=== PATIENT | male | born 1965 | race Caucasian/White ===

== ENCOUNTER 2025-08-20 13:56 | Outpatient (AMB) | payer OTHER, SELFPAY ==
--- NOTE | 2025-08-20 14:31 | MHC.PC.OV ---
Vital Signs 08/20/25 14:34 Height 5 ft 9.88 in Weight 250 lb BMI 36.0 BP 158/90 H Respiration 16 Pulse 100 Pulse Source Pulse Oximeter Temp 98.6 F Temp Source Temporal Artery Scan Pulse Oximetry (%) 97 Oxygen Delivery Method Room Air Intake Visit Reasons: Establish Care - see comments Hiv/Aids Care Nurse Required: No Accompanied by: Self / Same As Patient Allergies clindamycin Allergy (Mild, Verified 08/20/25 14:40) Diarrhea Tobacco use date assessed: 08/20/25 Dental Screening Dental Screen Date: 08/20/25 Did you have a dental visit in the last 12 months?: Yes Did you have a dental problem in the last 6 months where you did not have access to dental care?: No Was dental information given to patient?: Patient has dentist [facility] Medical History (Updated 08/20/25 @ 15:07 by Pablo Wooten MD) Hypopituitarism Obstructive sleep apnea Diabetes mellitus Family History (Updated 08/20/25 @ 14:46 by DIEGO Ramos) Father Prostate cancer Alcohol abuse Mother Breast cancer Alcohol abuse Social History (Updated 08/20/25 @ 14:32 by DIEGO Ramos) Housing: House Alcohol intake: current Alcohol intake frequency: does not drink Patient Tobacco Use Status: Never used Tobacco service: No Current occupational status: unemployed Cognitive needs: No Hearing needs: No Vision needs: Yes (rx glasses) Questionnaire PHQ-9 Over the last 2 weeks, how often have you been bothered by any of the following problems? 1. Little interest or pleasure in doing things: not at all 2. Feeling down, depressed, or hopeless: not at all 3. Trouble falling or staying asleep, or sleeping too much: not at all 4. Feeling tired or having little energy: not at all 5. Poor appetite or overeating: not at all 6. Feeling bad about yourself - or that you are a failure or have let yourself or your family down: not at all 7. Trouble concentrating on things, such as reading the newspaper or watching television: not at all 8. Moving or speaking so slowly that other people could have noticed. Or the opposite - being so fidgety or restless that you have been moving around a lot more than usual: not at all 9. Thoughts that you would be better off or of hurting yourself in some way: not at all Total score: 0 Source: Developed by Drs. Marcus Cotter, Bry Roberson and colleagues, with an educational danny from [employer] Thrive Questionnaire Date Thrive assessed: 08/20/25 I am a: Patient What is your living situation today?: I have a steady place to live Within the past 12 months, did the food you bought not last and you didn't have the money to get more?: Never true Within the past 12 months, did you worry whether your food would run out before you got money to buy more?: Never true Do you have trouble paying for medicines?: No Do you have trouble getting transportation to medical appointments?: No Do you have trouble paying your heating and electricity bill?: No Do you have trouble taking care of your child, family member or friend?: No Do you have trouble with day-to-day activities such as bathing, preparing meals, shopping, managing finances, etc.?: No Are you currently unemployed and looking for a job?: No Are you interested in more education?: No Please select the resources that you would like help with: None THRIVE Score: 0 AUDIT C Alcohol Use Questionnaire (AUDIT-C) 1. How often do you have a drink containing alcohol?: Never 3. How often do you have six or more drinks on one occasion?: Never Total Score: 0 AICHA-7 AMB Questionnaire AICHA-7 Date AICHA - 7 assessed: 08/20/25 Feeling nervous, anxious, or on edge: 0 = Not at all Not being able to stop or control worryin = Not at all Worrying too much about different things: 0 = Not at all Trouble relaxin = Not at all Being so restless that it is hard to sit still: 0 = Not at all Becoming easily annoyed or irritable: 0 = Not at all Feeling afraid as if something awful might happen: 0 = Not at all Total AICHA-7 score (0-4 normal; 5-9 mild; 10-14 moderate; 15-21 severe): 0 Source: Developed by Drs. Marcus Cotter, Bry Roberson and colleagues, with an educational danny from [employer]. Physical exam (Primary Care) Vital Signs: Last Vital Signs Temp 98.6 F 08/20/25 14:34 Pulse 100 08/20/25 14:34 Resp 16 08/20/25 14:34 BP 158/90 H 08/20/25 14:34 Pulse Ox 97 08/20/25 14:34 Oxygen Delivery Method Room Air 08/20/25 14:34 BMI result Body Mass Index 36.0 Tobacco/Smoking Status: Tobacco use Status Tobacco use date assessed 08/20/25 08/20/25 14:47 Patient Tobacco Use Status Never used Tobacco 08/20/25 14:47 PHQ-9: PHQ-9 Score PHQ-9: Total score 0 08/20/25 14:47 Thrive Assessment: Date of Thrive Assessment Date Thrive assessed 08/20/25 08/20/25 14:47 Office Procedures Flu Questionnaire Does the patient have a severe egg allergy?: No Does the patient have severe life threatening allergies?: No Does the patient have a fever or illness today?: No Has the patient ever had Guillain-Garvin Syndrome?: No Has the patient ever had any past reaction to a flu shot?: No Immunizations Fluarix [id number] (PF) 45 mcg (15 mcg x 3)/0.5 mL IM syringe Performing Provider: Pablo Wooten MD [facility] [place] [facility] Administered by: DIEGO Ramos on 08/20/25 14:48 Dose Route Admin Location Dispensed Lot Number Expiration Date [facility] [employer] Season[employer] 0.5 mL IM Left Deltoid 0.5 mL [id number] 05/21/26 11840-361-41 [employer] VIS Given Date VIS Provided VIS Publication Date 08/20/25 Single Vaccine 24 Eligibility Eligibility Date Funding Source Not [facility] Eligible 08/20/25 Private Coding Level of Care Code New Pt Level 4 (27466) Complex EM visit Add On G2211 Diagnoses Diabetes mellitus E11.9 Obstructive sleep apnea G47.33 Hypopituitarism E23.0 Assessment & Plan Assessment & Plan (1) Diabetes mellitus: Code(s): E11.9 - Type 2 diabetes mellitus without complications Category: Medical Plan: History of Present Illness - The patient is a 59-year-old male presenting with chronic pain and sleep apnea. - Chronic pain: The patient has been managing chronic pain with oxycodone for several years, having tried other treatments without success. - Sleep apnea: Despite multiple interventions, including surgeries, the patient continues to experience severe sleep apnea due to anatomical factors. - Chronic pituitary insufficiency: The patient requires testosterone supplementation due to low hormone levels. - Cyclic edema: The patient has experienced recurrent swelling in the lower extremities, with no clear etiology identified despite extensive evaluation. - Umbilical hernia: The patient has an enlarging umbilical hernia, currently asymptomatic. - Knee pain: The patient reports knee pain following a fall, affecting mobility. - Preventative care: The patient has received a flu vaccination. 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 - Substance use: The patient denies smoking and alcohol use but reports consuming cannabis. Review of Systems - General: Reports chronic pain, denies recent weight loss or fever. - Respiratory: Reports severe sleep apnea, denies cough or wheezing. - Endocrine: Reports chronic pituitary insufficiency, denies diabetes. - Musculoskeletal: Reports knee pain, denies joint swelling. - Cardiovascular: Reports cyclic edema, denies chest pain or palpitations. Physical Exam General: Cooperative and healthy appearing Nutritional Appearance: Well nourished Orientation/consciousness: Patient oriented x3 Limitations: No limitations Head: Normal to inspection General: Appearance normal, both eyes and all related structures Neck: Normal visual inspection Chest: Normal palpation of entire chest wall Respiratory: Normal respiratory effort Neurology: Patient oriented x3 Results - Labs: Elevated cortisol levels noted during emergency room visit. - Tests: Multiple sleep studies confirming severe sleep apnea with an apnea-hypopnea index of 69. - Imaging: Vascular ultrasound and echocardiogram performed, no definitive cause for edema identified. Plan - Chronic pain management: Oxycodone will not be prescribed; alternative strategies to be explored. - Sleep apnea: Referral to a sleep specialist for further evaluation due to CPAP intolerance and previous surgeries. - Endocrinology referral: Referral for chronic pituitary insufficiency and elevated cortisol levels management. - Cyclic edema: Continue diuretic therapy and monitor symptoms. - Umbilical hernia: No immediate intervention required as it is asymptomatic. - Knee pain: Conservative management advised, expected to improve naturally. - Preventative care: Blood work ordered, including repeat A1c, and flu vaccination administered. Discussion Notes I discussed with the patient the management of his chronic pain, explaining that oxycodone would not be prescribed and alternative pain management strategies should be considered. We also talked about his severe sleep apnea and the need for a referral to a sleep specialist due to his difficulty with CPAP use and previous surgical interventions. I recommended a referral to an mounted police officer for his chronic pituitary insufficiency and elevated cortisol levels. We reviewed his cyclic edema and decided to continue with his current diuretic therapy. The umbilical hernia was noted to be asymptomatic, and no immediate intervention was required. For his knee pain, conservative management was advised, and it is expected to improve without intervention. Preventative care measures, including blood work and a flu vaccination, were also discussed. Patient Instructions - Follow up with a sleep specialist for further evaluation of sleep apnea. - Schedule an appointment with an mounted police officer for hormone management. - Continue taking prescribed diuretics and monitor for any changes in swelling. - Monitor knee pain and avoid activities that exacerbate discomfort. - Complete blood work as ordered, including a repeat A1c test. - Return for follow-up in three months or sooner if symptoms worsen. (2) Obstructive sleep apnea: Code(s): G47.33 - Obstructive sleep apnea (adult) (pediatric) Category: Medical Plan: As above (3) Hypopituitarism: Code(s): E23.0 - Hypopituitarism Category: Medical Plan: As above Orders: Orders Influenza [id number] Immunization Today Z23 - Encounter for immunization Complete Blood Count no Diff Today E11.9 - Type 2 diabetes mellitus without complications Basic Metabolic Panel Today E11.9 - Type 2 diabetes mellitus without complications Lipid Panel Today E11.9 - Type 2 diabetes mellitus without complications UA and rflx microscopic Today E11.9 - Type 2 diabetes mellitus without complications Hemoglobin A1c Today E11.9 - Type 2 diabetes mellitus without complications Liver Panel Today E11.9 - Type 2 diabetes mellitus without complications Thyroid Stimulating Hormone Today E11.9 - Type 2 diabetes mellitus without complications Referrals Sleep Medicine Referral G47.33 - Obstructive sleep apnea (adult) (pediatric) Endocrinology Referral E23.0 - Hypopituitarism Medications: New triamterene-hydrochlorothiazid 37.5-25 mg 1 tab PO DAILY 90 tabs 1RF
[2025-08-20 14:34] VITALS: BP 158/90; PULSE 100; RESP 16; TEMP 37; O2SAT 97; BMI 36.0
== END 2025-08-20 15:14 | disposition home or self-care (01) ==
LOC: HO.HMCSH 13:56
PROVIDERS: PCP Internal Medicine; Visit Provider Internal Medicine
DX: E11.9 Type 2 diabetes mellitus without complications (principal); G47.33 Obstructive sleep apnea (adult) (pediatric); E23.0 Hypopituitarism; Z23 Encounter for immunization

== ENCOUNTER → 2025-08-20 13:56 | Outpatient (BNVA) | payer OTHER, SELFPAY | PROVIDERS: PCP Internal Medicine; Visit Provider Internal Medicine | DX: E11.9 Type 2 diabetes mellitus without complications (principal); G47.33 Obstructive sleep apnea (adult) (pediatric); E23.0 Hypopituitarism; Z23 Encounter for immunization | CPT/HCPCS: 90471; 90656; 96127 ==

== ENCOUNTER 2025-09-03 07:29 | Outpatient (REF) | payer OTHER, SELFPAY ==
--- OUTSIDE RECORDS SUMMARY | 2018-05-03 09:46 | XMS_ITS | Continuity of Care Document ---
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 [address] [place] [address], [address], [place]. tel: [phone] [address] , [place], [place], [id number], [place] tel: [phone] [facility] No Information Mary Beth Vo. [address] [place] [address], [address], [place]. tel: [phone] Office/Estab lished Level [address] [place], [id number], [place] tel: [phone] [facility] Review abnormal Labs (chief complaint) Cerebrovascul ar accident (CVA) due to embolism of precerebral arteryHypogon adism in maleOther hyperlipidemi a Mary Beth Vo. [address] [place] [address], [address], [place]. tel: [phone] Referring Provider: Tavo Clinton, [address] [place] [address], [place], [address]. tel:[phone] Office/Estab lished Level [address] [place], [id number], [place] tel: [phone] [facility] fatigue (chief complaint) Body mass index (BMI) 27.0-27.9, adultChronic fatigueCerebr ovascular accident (CVA) due to embolism of precerebral arterySevere episode of recurrent major depressive disorder, without psychotic featuresHypog onadism in male Mary Beth Vo. [address] [place] [address], [address], [place]. tel: [phone] Referring Provider: Tavo Clinton, [address] [place] [address], [place], [address]. tel:[phone] [place], [id number], [place] tel: [phone] [facility] Pure hypercholeste rolemia Jul-0 6 Mary Beth Vo. [address] [place] [address], [address], [place]. tel: [phone] Referring Provider: Tavo Clinton, [address] [place] [address], [facility]. tel:[phone] Office/Estab lished Level [address] [place], [place], [id number], [place] tel:[phone] [facility] Depression (chief complaint)Adeola ulder pain (chief complaint)hyp erlipidemia (chief complaint) Spondylosis w/o myelopathy of lumbar regionCerebra l infarction due to embolism of unspecified cerebral arteryPure hypercholeste rolemiaObstru ctive sleep apnea syndrome Sep-0 6 Mary Beth Vo. [address] [place] [address], [facility], [place]. tel: [phone] Referring Provider: Tavo Clinton, [address] [place] [address], [address]. tel:[phone] [place], [place], [id number], [place] tel:[phone] [facility] Family history of malignant neoplasm of prostate May-0 6 Mary Beth Vo. [address] [place] [address], [address], [place]. tel: [phone] Referring Provider: Tavo Clinton, [address] [place] [address], [address]. tel:[phone] [place], [place], [id number], [place] tel:[phone] [facility] Dysuria (chief complaint)ere ctile dysfunction (chief complaint)pro statism (chief complaint)sle ep apnea (chief complaint) DysuriaFamily hx of prostate cancerDrug-in duced erectile dysfunctionPr ostatism Jerry-2 6 Mary Beth Vo. [address] [place] [address], [address], [place]. tel: [phone] Referring Provider: Tavo Clinton, [address] [place] [address], [address]. tel:[phone] , [place], [place], [id number], [place] tel: [phone] [facility] Back pain (chief complaint)Fat igue (chief complaint)dep ression (chief complaint) Body mass index (BMI) 28.0-28.9, adultChronic bilateral low back pain with right-sided sciaticaRecta l carcinoid tumorOther fatigueTestic ular hypofunction 6 Mary Beth Vo. [address] [place] [address], [address], [place]. tel: [phone] Referring Provider: Tavo Clinton, [address] [place] [address], [address]. tel:[phone] , [place], [place], [id number], [place] tel: [phone] [facility] 1202 Back pain (chief complaint)E/T (chief complaint).. (chief complaint) Spondylosis w/o myelopathy of lumbar regionSpondyl osis w/o myelopathy of cervical regionOther intervertebra l disc degeneration, lumbar regionOther spondylosis, thoracic region March-0 6 Ashley Kc. [address] [place] [address], [address]. tel: [phone] Referring Provider: Tavo Clinton, [address] [place] [address], [address]. tel:[phone] , [place], [place], [id number], [place] tel: [phone] [facility]2 ET (chief complaint) Spondylosis w/o myelopathy of cervical regionOther cervical disc degeneration, unspecified cervical regionSpondyl osis w/o myelopathy of lumbar regionOther intervertebra l disc degeneration, lumbar region Feb-2 6 Carroll Sandy. [address] [facility] [address], [place], [place], [id number] , [place]. tel: [phone] Referring Provider: Tavo Clinton, [address] [place] [address], [address]. tel:[phone] [place], [id number], [place] tel: [phone] [facility] Back pain (chief complaint)Nec k pain (chief complaint)ET (chief complaint) Other intervertebra l disc degeneration, lumbar regionSpondyl osis w/o myelopathy of cervical regionOther cervical disc degeneration, unspecified cervical regionOther spondylosis, thoracic regionDDD (degenerative disc disease), thoracicNeura lgia and neuritis, unspecifiedSp ondylosis w/o myelopathy of lumbar region Apr- 6 Carroll Sandy. [address] [facility], [address], [place], [place], [id number] , [place]. tel: [phone] Referring Provider: Tavo Clinton, [address] [place] [address], [address]. tel:[phone] [place], [id number], [place] tel: [phone] [facility] hyperlipidemi a (chief complaint)rea k pain (chief complaint)CVA (chief complaint)DEP RESSION (chief complaint) Body mass index (BMI) 29.0-29.9, adultCereb infrc due to embolism of unsp middle cerebral arteryOther depressive episodesRecta l carcinoid tumorChronic bilateral low back pain with right-sided sciaticaBilat eral low back pain with left-sided sciatica Apr-0 6 Mary Beth Vo. [address] [place] [address], [address], [place]. tel: [phone] Referring Provider: Tavo Clinton, [address] [place] [address], [address]. tel:[phone] [place], [id number], [place] tel:[phone] [facility] Cereb infrc due to embolism of unsp middle cerebral artery Jan-3 0- 6 Mary Beth Vo. [address] [place] [address], [facility], . tel: [phone] Referring Provider: Tavo Clinton, [address] [place] [address], [facility]. tel:[phone] , [place], [place], [id number], tel:[phone] [facility] Fatigue (chief complaint)CVA (chief complaint)Hyp erlipidemia (follow up) (chief complaint)Dep ression (chief complaint) Cerebral infarction due to embolism of unspecified middle cerebral arteryOther fatigueBilate ral low back pain with left-sided sciaticaTesti cular hypofunctionO ther depressive episodesFamil y hx of prostate cancer 6- 5 Mary Beth Vo. [address] [place] [address], [facility], . tel: [phone] Referring Provider: Tavo Clinton, [address] [place] [address], [facility]. tel:[phone] , [place], [place], [id number], tel:[phone] [facility] No Information 2- 5 Mary Beth Vo. [address] [place] [address], [facility], . tel: [phone] Family History Family Member Type Diagnosis Age [...] Unspecified Payers Payer name Insurance type Covered republican ID Authoriza tion(s) BCBS - [id number] Social History Type Description Quantity Date Captured Comments Sex Male Smoking Status No Information Chief Complaint And Reason For Visit No Information Reason For Referral Reason For Referral No Information Plan Of Treatment Date Type Action Status Goal Influenza vaccine. Due on due Goal Physical Exam. Due on due Goal Depression screening. Due on due Goal Depression screening. Due on due Goal Influenza vaccine. Due on due Goal Physical Exam. Due on due Goal Dietary management education , guidance, and counseling completed Goal Physical Exam. Due on due Goal [...] Goal Physical Exam. Due on due Goal Diabetes screening. Due on due Goal Influenza vaccine. Due on due Goal Diabetes screening. Due on A due Goal Physical Exam. Due on due Goal Depression screening. Due on due Goal Influenza vaccine. Due on Ap due Goal Diabetes screening. Due on A pr due Goal Influenza vaccine. Due on Ap r due Goal Physical Exam. Due on due Goal Depression screening. Due on due Goal Physical Exam. Due on due Goal Influenza vaccine. Due on Ap due Goal Diabetes screening. Due on A pr due Goal Depression screening. Due on due Goal Dietary management education , guidance, and counseling completed Goal Depression screening. Due on due Goal Physical Exam. Due on due Goal Influenza vaccine. Due on Oc due Goal Depression screening. Due on due Goal Physical Exam. Due on due Goal Influenza vaccine. Due on Oc due Goal Tdap due Referral Referred To: Govind Whitehead PA-C [facility] [place], [phone] Ordered: Referrals: Urology. Govind Whitehead PA-C. Consult [...] (TC) ordered Referral Referred To: De Ramirez [address] [place] [address], [address] [phone] Ordered: Referrals: Pain Management. De Ramirez. Consult [...] pt would like to check his prostate. sleep apnea Relevant history : a BMI of 29.04. Additional information: getting new oral appliance from dr ferreira. prostatism taking no meds erectile dysfunction Additional information: having increased issues with ed symptoms with meds he is currently taking. He is taking oxycodone intermittently for his back pain with occassional oxycodone.. Fatigue The patient does not present with [...] prolonged periods and get his work done. depression Additional infor sally: Depression is doing better with Abilify. He feels better on that medication. Back pain .. Physical Examina tion:Constitutional: Well developed, well [...] and paraspinous tenderness with and without percussion: [id number] spine: Normal ROM, Cervical spine: Normal ROM, [...] and pain (pin prick/nail bed pressure): UE: M6-1-8-5-6-7-8-T1 dermatomes intact Middle to lower back: [id number]-Y8-2-9-3-5-S1-S2 dermatomes intactLE: G7-5-3-4-5-S1-S2 dermatomes intact Motor: No pronator drift. No [...] to Body mass index (BMI) 27.0-27.9, adult prostate mildly swol stephon nontender recommend attempts at ejacualtinomild masasage performeddiscussed home treatment will see urology for injection therapy for ED Related to Prostatism psa in two weeks aft er prostate exam today Related to Family hx of prostate cancer Scribed by JANIS Johnson on 04/23/16 at [...]
[2025-09-03 10:21] LABS: Hematocrit 44.7 % (42.0-52.0); Hemoglobin 15.4 g/dl (14.0-18.0); Mean Corpuscular HGB Conc 34.5 g/dl (31.0-36.0); Mean Corpuscular Hemoglobin 30.3 pg (27.0-33.0); Mean Corpuscular Volume 87.8 fL (80.0-98.0); NRBC Abs Auto 0.000 X10*3/uL (0.0-0.012); NRBC Pct Auto 0.0 /100WBC (0.0-0.2); Platelet Count 297 X10*3/uL (160-400); Red Blood Count 5.09 X10*6/uL (4.60-5.80); White Blood Count 8.8 X10*3/uL (4.8-10.8)
[2025-09-03 10:29] LABS: Appearance Urine Clear; Glucose Urine UA Negative (Negative); PH 6.5 (5.0-9.0); Specific Gravity - Urine 1.010 (1.005-1.025)
[2025-09-03 10:41] LABS: Albumin Level 4.6 g/dL (3.5-5.0); Alkaline Phosphatase 62 U/L (39-117); Anion Gap 12 (12-20); Aspartate Amino Transferase 37 U/L (5-37); Blood Urea Nitrogen 14 mg/dL (9-16); Calcium 9.0 mg/dL (8.4-10.2); Carbon Dioxide 30 mmol/L (22-29); Chloride 95 mmol/L (96-108); Cholesterol 135 mg/dL (<200); Estimated Glomerular Filt Rate > 60; HDL Cholesterol 54 mg/dL (>40); Potassium 3.8 mmol/L (3.3-5.1); Sodium 133 mmol/L (135-145); Total Protein 6.8 g/dL (6.5-8.0); Triglycerides 69 mg/dL (<150)
[2025-09-03 10:46] LABS: Alanine Aminotransferase 34 U/L (0-40)
[2025-09-03 11:04] LABS: Thyroid Stimulating Hormone 1.07 uIU/mL (0.32-4.0)
== END 2025-09-03 07:30 | disposition home or self-care (01) ==
LOC: HO.HMGCLDS 07:29
PROVIDERS: PCP Internal Medicine; Visit Provider Internal Medicine
DX: E11.9 Type 2 diabetes mellitus without complications (principal)
CPT/HCPCS: 36415; 80048; 80061; 80076; 81003; 83036; 84443; 85027

== ENCOUNTER 2025-09-26 13:19 | Outpatient (AMB) | payer OTHER, SELFPAY ==
--- NOTE | 2025-09-26 13:47 | A.OFFVIS_ITS ---
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 Severe sleep apnea and difficulty with CPAP use and previous surgical interventions. Can not breath through nose(multiple surgeries and has tried CPAP for over 30 years. Snoring/apnea/gasping. Goes up bed 8pm wakes up 5am. Wakes up 6times a night. Naps 1hr, no headache. Last sleep studies due through [place] about 3years ago. Allergies clindamycin Allergy (Mild, Verified 09/26/25 13:49) Diarrhea HPI Comments Details: 59 year old male with h/o of sleep disturbances is referred by his PCP, for an evaluation of ALEIDA. 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 H/o uvulopalatopharyngoplasty- UPPP in 1997, and genioglossus advancement- . He recently lost his job in Dec 2024, the demands of his work lead to severe anxiety. He is chronically fatigued, falls asleep at the light in traffic, in conversations and when watching tv. He goes to sleep at 8pm and wakes up at midnight, stays up all night, watches tv, and plays with cats. He has conversations in his sleep, denies parasomnia, denies morning headaches. He snores loudly, gasps for air, has pauses, he tried an oral device which is no longer effective. He has acid reflux, managed with omeprazole, denies bloating, flatulence. His entire body twitches, denies rls symptoms, denies numbness, tingling, pins and needles. Memory is fuzzy, has to be well organized, does not like to multitask. Mood generally stable, managed on a combo of lexapro 30mg po and abilify 2.5mg po daily 2am to 8am. Diet is stable.Denies smoking, MJ and edibles. [facility] stroke in 2013, minor ischemic denies dysarthria, drooling, loc, vision changes, had weakness in his rue, and rle, with numbness, loss of sensation, noted light touch, pressure touch differences. PFSH Medical History Hypopituitarism Obstructive sleep apnea Diabetes mellitus Family History Father Prostate cancer Alcohol abuse Mother Breast cancer Alcohol abuse Social History Housing: House Alcohol intake: current Alcohol intake frequency: does not drink Patient Tobacco Use Status: Never used Tobacco service: No Current occupational status: unemployed Cognitive needs: No Hearing needs: No Vision needs: Yes (rx glasses) Physical Exam Vital Signs: Last Vital Signs Pulse 80 09/26/25 13:48 BP 128/82 09/26/25 13:48 Pulse Ox 94 09/26/25 13:48 Oxygen Delivery Method Room Air 09/26/25 13:48 BMI result Body Mass Index 37.7 Const General: cooperative, comfortable and no acute distress Nutritional Appearance: obese Orientation/consciousness: patient oriented x3 HEENT Face and sinus: Yes face symmetric Teeth and gingiva: other (mallampti score is 4) Resp Effort & Inspection: normal respiratory effort and able to speak in complete sentences Neuro Other: Lateral rom limited to the r. General: patient oriented x3 and moves all extremities Cranial nerves: Yes Normal facial strength present, Yes Midline tongue present, Yes Ability to bilaterally rotate head present and Yes Ability to bilaterally elevate shoulders present Cognition (Neuro): normal cognition Gait exam (Neuro): Antalgic gait present Motor exam (neuro): 5/5 motor strength present throughout and Normal motor muscle tone present throughout Psych Appearance: grossly normal Speech and movement: Normal speech and movement present Thought process: Normal thought process present Results Reviewed Results Reviewed: Labs reviewed lab salbador May 2025 Cortisol is elevated MRI 2022 reviewed with pt. [id number]-C7 r.bilateral narrowing, stenosis. T12 L. narrrowing with mild degenerative disc dessication. Assessment & Plan Assessment & Plan (1) Excessive daytime sleepiness: Code(s): G47.19 - Other hypersomnia Category: Medical (2) Obstructive sleep apnea: Code(s): G47.33 - Obstructive sleep apnea (adult) (pediatric) Category: Medical (3) Chronic fatigue: Code(s): R53.82 - Chronic fatigue, unspecified Category: Medical Plan HST r/o aleida Labs to r/o deficiencies MRI is reviewed with pt. cervical right narrowing/stenosis F/u in 3 months Orders: Orders RT home sleep study 09/26/25 G47.19 - Other hypersomnia Vitamin B12 and Folate 09/26/25 G47.19 - Other hypersomnia, G47.33 - Obstructive sleep apnea (adult) (pediatric), R53.82 - Chronic fatigue, unspecified Ferritin 09/26/25 G47.19 - Other hypersomnia, G47.33 - Obstructive sleep apnea (adult) (pediatric), R53.82 - Chronic fatigue, unspecified Methylmalonic Acid 09/26/25 G47.19 - Other hypersomnia, G47.33 - Obstructive sleep apnea (adult) (pediatric), G47.9 - Sleep disorder, unspecified, R53.82 - Chronic fatigue, unspecified, R53.83 - Other fatigue Homocysteine 09/26/25 G47.19 - Other hypersomnia, G47.33 - Obstructive sleep apnea (adult) (pediatric), G47.9 - Sleep disorder, unspecified, R53.82 - Chronic fatigue, unspecified, R53.83 - Other fatigue Patient Instructions: Please complete the following fasting labs to rule out deficiencies. CBC/CMP/ B12/ Vit D/ TSH/ Homocysteine and MMA/ Ferritin. Sleep Hygiene provided: set a scheduled bedtime and wake time to help regulate the circadian rhythm and balance the release of pituitary hormones. Sleep in a dark room, temperatures below 68 degrees, and no devices n bed. Limit caffeinated products 6 hours prior to bed, and limit fluids 2-4 hours prior to bed. Gentle night yoga, diffusing essential oils, and playing soft music can be relaxing. ESS at next visit. Coding Level of Care Code New Pt Level 4 (80911) Diagnoses Excessive daytime sleepiness G47.19 Obstructive sleep apnea G47.33 Chronic fatigue R53.82 Sleep Questionnaire Difficulty falling asleep: No Difficulty staying asleep?: Yes Number of arousals: >5 Snoring: Yes Witnessed apneas: Yes Gasping arousals: Yes GERD: Yes Vivid dreams: No Acting out dreams: Yes Abnormal behavior in sleep: No Abnormal movements in sleep: No Morning headaches: No Excessive daytime sleepiness: Yes Daytime naps: Yes Restless legs: No Hallucinations: No Sleep paralysis: No Drop attacks: No Sleep Study: Yes CPAP: Yes
[2025-09-26 13:48] VITALS: BP 128/82; PULSE 80; O2SAT 94; BMI 37.7
== END 2025-09-26 14:46 | disposition home or self-care (01) ==
LOC: HO.HSMC 13:19
PROVIDERS: PCP Internal Medicine; Visit Provider Physician Assistant Medical
DX: G47.19 Other hypersomnia (principal); G47.33 Obstructive sleep apnea (adult) (pediatric); R53.82 Chronic fatigue, unspecified
CPT/HCPCS: 99204

== ENCOUNTER 2025-10-30 08:07 | Outpatient (AMB) | payer OTHER, SELFPAY ==
--- OUTSIDE RECORDS SUMMARY | 2018-05-03 08:46 | XMS_ITS | Continuity of Care Document ---
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 Role Phone Tavo Clinton MD Unavailable Unavailable Allergies, Adverse Reactions, Alerts Substance Reaction Status Criticality No Known Allergies Active No Inform ation Medications Medication Instructions Dosage Effective Dates (start - stop) Status Comments ATORVASTATIN 10MG TABLETS TAKE 1 TABLET BY MOUTH DAILY - Active aspirin 81 mg chewable tablet chew 1 tablet by oral route every day 81 MG - Active clonazepam 1 mg tablet take 1 tablet by oral route at bedtime - Active Lexapro 20 mg tablet take 1 tablet by oral route 2 times every day 20 MG - Active Abilify 5 mg tablet take 1 tablet by oral route every day 5 MG - Active Atorvastatin Calcium 10 MG Oral Tablet 1 (one) Tablet Tablet, Oral, daily 10 MG - No Longer Active Procedures Procedure Date Office/Established Level 3 Office/Established Level 4 ROUTINE VENIPUNCTURE ASSAY OF TOTAL TESTOSTERONE ROUTINE VENIPUNCTURE LIPID PANEL COMPREHEN METABOLIC PANEL Office/Established Level 4 ROUTINE VENIPUNCTURE ASSAY OF PSA TOTAL Advance Directives Directive Yes / No Effective Date File Name No Information Encounters Encounter Description Practice Location Reason(s) For Visit Diagnoses Date Provider Providers Copied on Encounter [address] [place], [id number], [place] tel:[phone] [facility] No Information Mary Beth Vo. [address] [place] [address], [address], [place]. tel: [phone] [address] , [place], [place], [id number], [place] tel: [phone] [facility] No Information Mary Beth Vo. [address] [place] [address], [place]. tel: [phone] Office/Estab lished Level [address] [place], [id number], [place] tel: [phone] [facility] Review abnormal Labs (chief complaint) Cerebrovascul ar accident (CVA) due to embolism of precerebral arteryHypogon adism in maleOther hyperlipidemi a Mary Beth Vo. [address] [place] [address], [address], [place]. tel: [phone] Referring Provider: Tavo Clinton, [address] [place] [address], [place], [address]. tel:[phone] Office/Estab lished Level [address] [place], [id number], [place] tel: [phone] [facility] fatigue (chief complaint) Body mass index (BMI) 27.0-27.9, adultChronic fatigueCerebr ovascular accident (CVA) due to embolism of precerebral arterySevere episode of recurrent major depressive disorder, without psychotic featuresHypog onadism in male Mary Beth Vo. [address] [place] [address], [address], [place]. tel: [phone] Referring Provider: Tavo Clinton, [address] [place] [address], [place], [address]. tel:[phone] [place], [id number], [place] tel: [phone] [facility] Pure hypercholeste rolemia Jul-0 6 Mary Beth Vo. [address] [place] [address], [address], [place]. tel: [phone] Referring Provider: Tavo Clinton, [address] [place] [address], [facility]. tel:[phone] Office/Estab lished Level [address] [place], [place], [id number], [place] tel:[phone] [facility] Depression (chief complaint)Adeola ulder pain (chief complaint)hyp erlipidemia (chief complaint) Spondylosis w/o myelopathy of lumbar regionCerebra l infarction due to embolism of unspecified cerebral arteryPure hypercholeste rolemiaObstru ctive sleep apnea syndrome Sep-0 6 Mary Beth Vo. [address] [place] [address], [facility], [place]. tel: [phone] Referring Provider: Tavo Clinton, [address] [place] [address], [address]. tel:[phone] [place], [place], [id number], [place] tel:[phone] [facility] Family history of malignant neoplasm of prostate May-0 6 Mary Beth Vo. [address] [place] [address], [address], [place]. tel: [phone] Referring Provider: Tavo Clinton, [address] [place] [address], [address]. tel:[phone] [place], [place], [id number], [place] tel:[phone] [facility] Dysuria (chief complaint)ere ctile dysfunction (chief complaint)pro statism (chief complaint)sle ep apnea (chief complaint) DysuriaFamily hx of prostate cancerDrug-in duced erectile dysfunctionPr ostatism Jerry-2 6 Mary Beth Vo. [address] [place] [address], [address], [place]. tel: [phone] Referring Provider: Tavo Clinton, [address] [place] [address], [address]. tel:[phone] , [place], [place], [id number], [place] tel: [phone] [facility] Back pain (chief complaint)Fat igue (chief complaint)dep ression (chief complaint) Body mass index (BMI) 28.0-28.9, adultChronic bilateral low back pain with right-sided sciaticaRecta l carcinoid tumorOther fatigueTestic ular hypofunction 6 Mary Beth Vo. [address] [place] [address], [address], [place]. tel: [phone] Referring Provider: Tavo Clinton, [address] [place] [address], [address]. tel:[phone] , [place], [place], [id number], [place] tel: [phone] [facility] 1202 Back pain (chief complaint)E/T (chief complaint).. (chief complaint) Spondylosis w/o myelopathy of lumbar regionSpondyl osis w/o myelopathy of cervical regionOther intervertebra l disc degeneration, lumbar regionOther spondylosis, thoracic region March-0 6 Ashley Kc. [address] [place] [address], [address]. tel: [phone] Referring Provider: Tavo Clinton, [address] [place] [address], [address]. tel:[phone] , [place], [place], [id number], [place] tel: [phone] [facility] 1202 ET (chief complaint) Spondylosis w/o myelopathy of cervical regionOther cervical disc degeneration, unspecified cervical regionSpondyl osis w/o myelopathy of lumbar regionOther intervertebra l disc degeneration, lumbar region Feb-2 6 Carroll Sandy. [address] [facility] [address], [place], [place], [id number] , [place]. tel: [phone] Referring Provider: Tavo Clinton, [address] [place] [address], [address]. tel:[phone] [place], [id number], [place] tel: [phone] Sp[facility] Intervention At [facility] Back pain (chief complaint)Nec k pain (chief complaint)ET (chief complaint) Other intervertebra l disc degeneration, lumbar regionSpondyl osis w/o myelopathy of cervical regionOther cervical disc degeneration, unspecified cervical regionOther spondylosis, thoracic regionDDD (degenerative disc disease), thoracicNeura lgia and neuritis, unspecifiedSp ondylosis w/o myelopathy of lumbar region Apr- 6 Carroll Sandy. [address] [facility], [address], [place], [place], [id number] , [place]. tel: [phone] Referring Provider: Tavo Clinton, [address] [place] [address], [address]. tel:[phone] [place], [id number], [place] tel: [phone] [facility] hyperlipidemi a (chief complaint)rea k pain (chief complaint)CVA (chief complaint)DEP RESSION (chief complaint) Body mass index (BMI) 29.0-29.9, adultCereb infrc due to embolism of unsp middle cerebral arteryOther depressive episodesRecta l carcinoid tumorChronic bilateral low back pain with right-sided sciaticaBilat eral low back pain with left-sided sciatica Apr-0 6 Mary Beth Vo. [address] [place] [address], [address], [place]. tel: [phone] Referring Provider: Tavo Clinton, [address] [place] [address], [address]. tel:[phone] [place], [id number], [place] tel:[phone] [facility] Cereb infrc due to embolism of unsp middle cerebral artery Jan-3 0- 6 Mary Beth Vo. [address] [place] [address], [facility], . tel: [phone] Referring Provider: Tavo Clinton, [address] [place] [address], [facility]. tel:[phone] , [place], [place], [id number], tel:[phone] [facility] Fatigue (chief complaint)CVA (chief complaint)Hyp erlipidemia (follow up) (chief complaint)Dep ression (chief complaint) Cerebral infarction due to embolism of unspecified middle cerebral arteryOther fatigueBilate ral low back pain with left-sided sciaticaTesti cular hypofunctionO ther depressive episodesFamil y hx of prostate cancer 6- 5 Mary Beth Vo. [address] [place] [address], [facility], . tel: [phone] Referring Provider: Tavo Clinton, [address] [place] [address], [facility]. tel:[phone] , [place], [place], [id number], tel:[phone] [facility] No Information 2- 5 Mary Beth Vo. [address] [place] [address], [facility], . tel: [phone] Family History Family Member Type Diagnosis Age At Onset Sister Problem (finding) Arteriovenous malformat ion Paternal grandmother Problem (finding) Arteriosc lerotic cardiovascular disease Maternal grandfather Problem (finding) Arteriosc lerotic cardiovascular disease Sister Problem (finding) Thyroid disorder Paternal grandfather Problem (finding) Arteriosc lerotic cardiovascular disease Maternal grandmother Problem (finding) Arteriosc lerotic cardiovascular disease Immunizations Vaccine Date Status Comments Tdap administered Source: Source Unspecified Payers Payer name Insurance type Covered constitution party ID Authoriza tion(s) BCBS - [employer] [id number] Social History Type Description Quantity Date Captured Comments Sex Male Smoking Status No Information Chief Complaint And Reason For Visit No Information Reason For Referral Reason For Referral No Information Plan Of Treatment Date Type Action Status Goal Physical Exam. Due on due Goal Influenza vaccine. Due on due Goal Depression screening. Due on due Goal Influenza vaccine. Due on due Goal Physical Exam. Due on due Goal Depression screening. Due on due Goal Dietary management education , guidance, and counseling completed Goal Diabetes screening. Due on due Goal Depression screening. Due on due Goal Influenza vaccine. Due on due Goal Physical Exam. Due on due Goal Physical Exam. Due on due Goal Depression screening. Due on due Goal Influenza vaccine. Due on due Goal Diabetes screening. Due on due Goal Diabetes screening. Due on due Goal Influenza vaccine. Due on due Goal Physical Exam. Due on due Goal Depression screening. Due on due Goal Dietary management education , guidance, and counseling completed Goal Depression screening. Due on due Goal Influenza vaccine. Due on due Goal Diabetes screening. Due on due Goal Physical Exam. Due on due Goal Physical Exam. Due on due Goal Influenza vaccine. Due on due Goal Diabetes screening. Due on A due Goal Depression screening. Due on due Goal Diabetes screening. Due on A due Goal Depression screening. Due on due Goal Influenza vaccine. Due on Ap due Goal Physical Exam. Due on due Goal Physical Exam. Due on due Goal Depression screening. Due on due Goal Diabetes screening. Due on A due Goal Influenza vaccine. Due on Ap due Goal Dietary management education , guidance, and counseling completed Goal Depression screening. Due on due Goal Physical Exam. Due on due Goal Influenza vaccine. Due on Oc due Goal Depression screening. Due on due Goal Tdap due Goal Physical Exam. Due on due Goal Influenza vaccine. Due on Oc due Referral Referred To: Govind Whitehead PA-C [facility] [place], [phone] Ordered: Referrals: Urology. Govind Whitehead PA-C. Consult ordered Referral Ordered: Neurology (related to Neuralgia and neuritis, unspecified) ordered Referral Ordered: X-ray Cervical Spine W/ Obliq. & Flex. Ext. (TC) ordered Referral Ordered: X-ray Thoracic Spine (2 view) (TC) (Outside ) ordered Referral Ordered: Referrals: Neurology. Diagnostic testing ordered Referral Ordered: X-ray Lumbosacral Spine - Complete W/ Oblique and Flexion/Extension (TC) ordered Referral Ordered: MRI T-Spine w/o contrast (TC) ordered Referral Referred To: De Ramirez [address] [place] [address], [phone] Ordered: Referrals: Pain Management. De Ramirez. Consult ordered Referral Referred To: Physical Therapy Ordered: Referrals: Physical Therapy. Consult ordered History Of Present Illness Encounter Date Complaint History Of Prese nt Illness Review abnormal Labs fatigue The symptoms beg an 2 months ago. The symptoms have remained unchanged. The fatigue occurs constantly. The patient presents with fatigue and headache. The patient does not present with abdominal pain, anorexia, arthralgia, back pain, cough, difficulty concentrating, fever, muscle weakness, nausea, pharyngitis, somnolence, rash, vomiting or weight loss. Risk factors include depression. The symptoms are not aggravated with pain or excessive sleep. The fatigue is associated with generalized weakness and malaise. The patient denies any change in appetite, chills, change in sleep cycle, constipation, diarrhea, dyspnea, flank pain, heartburn, increased abdominal girth, jaundice and lightheadedness. Depression Additional infor mation: symptoms are well controlled on Fluoxetine 20 mg. hyperlipidemia The hyperlipidem ia is stable. Risk factors include age over 50. Positive comorbidity factors include stroke. Hyperlipidemia management includes statins. Pertinent negatives include chest pain, claudication, constant hunger, constipation, diaphoresis, diarrhea, dizziness, dysesthesias, dyspnea, excessive thirst, foot ulcer, frequent infections, heartburn, hematuria, hypoglycemic episodes, impotence/erectile dysfunction, increased fatigue, joint pain, myalgia, nausea, nocturia, palpitations, polydipsia, polyuria, rash, slow healing, transient weakness, vision loss, vomiting, weight gain and weight loss. Shoulder pain Location: should er. Pertinent negatives include joint instability and joint tenderness. Additional information: occasional shoulder pain doing stretching exercsies and got back brace and it has helped with posture and standing Takes oxycodone occassioanlly for necka nd backa nd shoulder pain to help with work. Dysuria Onset: 2 weeks a go. Additional information: difficulty voiding and discomfort and pt would like to check his prostate. erectile dysfunction Additional information: having increased issues with ed symptoms with meds he is currently taking. He is taking oxycodone intermittently for his back pain with occassional oxycodone.. prostatism taking no meds sleep apnea Relevant history : a BMI of 29.04. Additional information: getting new oral appliance from dr ferreira. Fatigue The patient does not present with cough, nausea or vomiting. The patient denies any diarrhea and dyspnea. Additional information: Patient has had increasing fatigue, difficulty with concentrating during the day, hard time getting his work done, sitting for prolonged periods of time during his busy time of the year. Needs to have a metabolic evaluation for fatigue. Has had some low testosterone in the past. Back pain (comments) He has seen the pain management doctors recently. He had an EMG done that did not show any etiology for his right-sided sciatica. Has been working with Dr. Antoine and Dr. Ramirez. Did do well with taking intermittent oxycodone that helped him be able to sit for prolonged periods and get his work done. Back pain depression Additional infor sally: Depression is doing better with Abilify. He feels better on that medication. .. Physical Examina tion:Constitutional: Well developed, well nourished, no acute distress. Integumentary: No birthmarks, no de- or hyper-pigmented macules, no bruising. No skin ulcer, no rash. Body regions checked including the following but are not limited to Head, neck, trunk, back right and left UEs and LEs. Head: Normocephalic. Intact cranium. Normal hair distribution according to age and gender.Neck: Trachea is midline. No mass nor enlargement of thyroid gland. ENMT: No facial swelling nor tenderness. Mouth opening >5cm and no pain nor tenderness. No enlarged salivary gland. Nose, there are no scars, lesions, ulcers or bony deformities Oral cavity reveals normal lips, teeth, gums and oral mucosa.Ears: Normal external contour and canal, hearing intact to voice. No mastoid/styloid tendernessChest and Lung and Respiratory: No dyspnea nor shortness of breathNormal chest contour. No focal tenderness. No supraclavical fossa mass or node. Normal breath sounds, no adventitious sounds and normal vocal resonance. Cardiovascular: Bilateral - Carotid artery and jugular vein normal without distention and failed to detect bruit or murmur. Heart rate & rhythm - Regular and failed to detect irregular pulse. Normal S1, S2. Peripheral Vascular: Arms: No delayed capillary refill, digital clubbing, erythema or loss of hair or thickening of nails. Legs: No Loss of hair, atrophic skin, varicose veins. No acrocyanosis, erythema, coolness, edema.Palpation: Dorsalis pedis pulse - Bilateral - Normal.Posterior tibal pulse - Bilateral - Normal. Carotid pulse - Bilateral - Normal. Radial artery pulse - Bilateral - Normal. Temporal artery pulse - Bilateral - Normal.Capillary refill - Less than 2 seconds.Abdomen: Contour: Normal umbilicus. Slightly protuberant. Mild obesePalpation: Soft, non-tender, non-distended, no hernia, masses (pulsating or not) or HSM, no rebounding/guarding. Bowel sounds normal and no abdominal bruits. Genitalia/Groin/Buttock: Bilaterally symmetric groin/buttock. No uneven pelvis. Renal triangle percussion tenderness-- bilateral negativeHematology/Lymphatic/immunology: No bruise. No petechia. Axillar, infra/supraclavical, submandibular, neck, inguinal, popliteal -No enlarged lymph nodes. Musculoskeletal: examination includes inspection, palpation; direct, sustained pressure, pulse direct pressure, and percussion pressure were used for pain and tenderness assessment. Left and right side, local skin color, temp, hair, edema, mass, swelling, ROM, joint stability, erythema, pain and tenderness were checked. Scapular Left: Normal, Right: Normal.Shoulder: Left: Normal, Right: Normal. Elbow: Left: Normal, Right: Normal. Wrist: Left: Normal, Right: Normal.Tinel sign at wrist: Left: Normal, Right: Normal.Tinel sign at elbow: Left: Normal, Right: Normal.Hand: Left: Normal, Right: Normal. Arm: Left: Normal, Right: Normal.Rib and rib cage Normal. No tenderness, normal excursion and expansionHip: Left: Normal, Right: Normal. Pelvis: Left: Normal, Right: Normal. Knee: Left: Normal, Right: Normal. Foot/ankle: Left: Normal, Right: Normal.Middle back pain or tenderness with and without percussion: Negative;;;Thoracic spinous process tenderness with and without percussion: Negative:::Thoracic facet joint tenderness: Negative;;;Thoracic paraspinal and paraspinous tenderness with and without percussion: [id number] spine: Normal ROM, Cervical spine: Normal ROM, no torticollis.Negative postural or skeletal scoliosis, Negative kyphosis. Lumbar spine: Normal ROM, No defect nor mass nor skin dimple. No percussion tenderness.Sacral spine: Negative for tenderness at S-C and SIJ joint. No defectCoccygeal spine: Negative for tenderness at S-C joint. No defect+ brady lower back pain;;+ L3, L4, L5, S1 spinous process tenderness;;+ brady L3, L4, L5 paraspinous tenderness;;+ bilateral L3, L4, L5 facet loading test;;Negative SLE tenderness;;;Negative piriformis tenderness;;Negative sciatica tenderness;;;Negative SIJ tenderness;;Negative trochanteric bursa tenderness;;Negative ischial bursa tenderness;Negative psoas muscle stretching test ;;Negative quadratus lumborum muscle tenderness;;Negative gluteal muscle tenderness;;Negative hamstring muscle tenderness;;Negative paraspinous muscle tenderness;;Negative C2, C3, C4 facet joint tenderness and Negative C2, C3, C4 facet loading test;;Negative C5-6-7 cervical spinous process tenderness:C5, C6, C7 facet joint tenderness: Negative Occipital nerve tenderness: NegativeSpurling test: Negative Ashley sign: Negative.Lhermitte's sign: Negative.Negative scalene cramp test;Negative Adsen test;Negative scalene -arm raise test;;Negative scalene tenderness;;Negative pectoris minor tenderness;;Negative levator scapular tenderness;;Negative trapezius tenderness;;Negative rhomboidal tenderness;;Neurologic Sensory: Absent: Dysesthesia; hyperesthesia; hypoesthesia; allodynia; Tactile and pain (pin prick/nail bed pressure): UE: D2-4-8-5-6-7-8-T1 dermatomes intact Middle to lower back: [id number]-P6-0-9-5-5-S1-S2 dermatomes intactLE: S3-9-6-4-5-S1-S2 dermatomes intact Motor: No pronator drift. No fatigability.No involuntary movements, no chorea, athetosis, dystonia. Fine motor skills: NL rapid alternating movements-finger tapping, arm roll, hand flapping. Bulk /Contour/tone: Neck, back, trunk, UE s and LEs--Normal muscle bulk and contour, normal tone. Muscle pain and tenderness in limb and limb girdle: absentHead drop and muscle fatigability: absentMotor Upper Ext - -left and rightDeltoid (C5-6): 5/5Biceps-brachialis (C5-6): 5/5Triceps (C7-8): 5/5Wrist extensors (C7-8): 5/5Wrist flexors (C7-8, T1): 5/5Digits extensors (C6-8): 5/5Thenar (C8-T1): 5/5Interossei (C8-T1): 5/5Motor Lower Ext - - left and rightIliopsoas (L1-4): 5/5Gluteus ashok (L5-S1): 5/5Quadriceps (L2-4): 5/5Hamstrings (L4-5, S1): 5/5 Peronei (L4-5, S1): 5/5Ankle flex/ Tibialis ant (L4-5, S1): 5/5Ankle ext/Gastrocnemius (L5, S1-2): 5/5Toes - extensors (L4-5, S1): 5/5Toes - flexors (L5-S1-2): 5/5Reflexes: Biceps (C5-6): Right: 2+, Left: 2+. Brachio-radialis (C5-6): Right: 2+, Left: 2+. Triceps (C6-8): Right: 2+, Left: 2+. Patellar (L2-4): Right: 2+, Left: 2+.Achilles (L5, S1/2): Right: 2+, Left: 2+. Plantar Reflexes (L4-S2) - Left Absent Right Absent Clonus AbsentNuchal rigidity AbsentBrudzinski signs (chin to chest evokes hip flexion) AbsentKernig sign (resistance to knee ext evokes pain in hamstrings) AbsentCoordination: No truncal nor appendicular ataxia. No titubation. No excessive rebound bilaterally. No dysdiadochokinesis on rapid alternating movement.Finger - nose- finger: normal bilaterally Heel- lanier: normal bilaterally Gait: Assistance: None.Antalgic gait: NoneNot broad-based Normal stride and arm/hip swing. Normal standing up and sitting down.Initiation, acceleration, deceleration, stopping, and turning: NormalNo impairment of tandem walking. No impairment of walking on toes- No claudicating at 50 feetNo impairment of walking on heels- No claudicating at 50 feet.Romberg sign: Negative. PD gait: NoneMagnetic gait: NoneHemi paretic gait: NoneMental Status: Awake, alert, and oriented to person, place and date. Normal attention spanLanguage and Speech: Fluent without dysarthria nor dysphasia; Normal concentrate, name objects, repeat phrases and articulate symptoms. Psychiatric: Appropriate mood and affect. Normal insight. Normal judgment. Cranial Nerves: I: Not testedII Optic: Visual zamarripa - right/left field intact to confrontation. NL fundi I II Oculomotor: Bilateral pupils are regular, round, and equal.Reactive to light with symmetric constriction, directly and consensually.Extraocular movements are intact with superior/medial rectus, inferior rectus, oblique. Ptosis: NegativePupils dilated well in the darkness. No Roel's OU.Eye: No exophthalmos or squinted eye. No dis-conjugated gaze nor nystagmus. No opaque cornea. Normal and clear lens bilaterally. Normal iris, no uveitis. No discharge No congested sclera/conjunctiva. Sclera anicteric. No constricted or dilated pupil. IV Trochlear: The extraocular movements are intact. V Trigeminal: Intact facial sensation bilaterally at V1, V2, V3. No tenderness over supra- and infra-orbital nerve. The jaw opens in the midline. Abducens: The extraocular movements are intact. VII Facial: No ptosis, no facial drop. Eye closure strength: bilateral 5 of 5. Lip closure strength: bilateral 5 of 5. VIII Acoustic: Hearing normal to voice. IX Glossopharyngeal / X Vagus: Uvula midline. Palate elevation is in midline without deviation nor paralysis. XI Accessory: Bilateral shoulder shrugging 5/5 and symmetric. Sternocleidomastoid - Head turning to left and right is 5/5. XII Hypoglossal: No fasciculation nor atrophy. Tongue protrusion is midline Symmetry: PE was conducted for ipsilateral and contra lateral side to ensure comparison and symmetry. Unless specified otherwise, normal and negative findings were performed twice and abnormal finding were performed three times minimally to ensure reproducibility and reproduction of pt's symptoms and /or signs. ROS-for more details, plx see history and physical. Back pain Onset: 1 year ag o. Severity level is moderate-severe. Duration: 1 Year. The problem is stable. It occurs persistently. Location of pain is upper back, middle back, lower back and the entire back hurts.The patient describes the pain as an ache, deep and dull. Symptoms are aggravated by bending, flexion, lifting, sitting, standing, twisting, walking, house chores- such as cooking, vacuuming, laundry and cleaning. Symptoms are relieved by lying down, stretching and rest. Additional information: Patient denies weakness, numbness, urinary and fecal incontinency, radicular pain, fever, weight loss, or saddle area anesthesia. Sitting and working on his computer hurts. E/T Permanent compil ation of past workup and treatment history, reviewed, edited and updated and discussed with pt in relevance and relationship to past and current illness.MRI of the thoracic spine was obtained from lower cervical to upper lumbar levels utilizing sagittal T1 and T2-weighted and STIR images and axial T1 and T2-weighted images.Findings: MRI of the middle back reveals unremarkable soft tissue. Vertebral alignment is good. There are sclerotic changes around the C7-T1 disc space. There are mild anterior disc protrusions at lower cervical levels. There are minimal posterior disc protrusions at most. Posterior elements appear unremarkable. Foramina appear grossly patent. CSF, cord and nerve root signals appear unremarkable.Impression: MRI of the thoracic spine is mildly abnormal due to degenerative disc disease at C7-T1 but with no evidence of neural compromise.*His trtmt hx and C/T/L - Xray and spinal pathologies revealed reviewed. Previous & outside med record reviewed/discussed - see Orth-Xray document when available.Patient denies fever, fatigue, malaise, rigor, night sweat, unintentional or unaccounted wt loss, local erythema, edema, swelling at the site, tenderness, new lateralized or generalized weakness, numbness, abnormal sensation, nuchal rigidity, new, or positional, or thunder clap headache, nausea, vomiting, imbalance, vertigo, hearing loss, speech deficit, visual loss, new urinary or fecal incontinency, urgency, frequency or dysuria, saddle area anesthesia. Further denies abdl pain or GI symptoms. Upon questioning, the pt denies any other bodily pain. The pt denied there is any other medical issue that needs to be addressed at this visit. The pt said there was no further information that had not been asked and inquired for the illness. The pt said there was nothing to add to the body of information known. ET 1. Back pain Ons et: 1 year ago. Location of pain is middle back and lower back. There is no radiation of pain. The patient describes the pain as an ache. Symptoms are aggravated by daily activities, sitting, standing and walking. The patient denies relieving factors. Additional information: Stated that physical therapy made it worse.2. Neck pain Onset: 1 year ago. The severity of the problem is moderate. Location of pain is bilateral lateral neck, bilateral posterior neck, bilateral shoulder and bilateral upper back. Aggravating factors include exertion and turning head. Pertinent negatives include bladder incontinence, rash and weight loss. See x-ray docs for recent imaging reports, reviewed and discussed with pt.EMG/NCS alexandro BELL. Back pain Onset: 1 year ag o. Location of pain is middle back and lower back.There is no radiation of pain. The patient describes the pain as an ache. Symptoms are aggravated by daily activities, sitting, standing and walking.The patient denies relieving factors. Additional information: Stated that physical therapy made it worse. Neck pain Onset: 1 year ag o. The severity of the problem is moderate. Location of pain is bilateral lateral neck, bilateral posterior neck, bilateral shoulder and bilateral upper back. Aggravating factors include exertion and turning head. Pertinent negatives include bladder incontinence, rash and weight loss. ET Hx of stroke aff ecting the right side/notes occasional weakness. Pt failed Physical therapy.Pt failed exercise.Pt failed bedrest.Pt failed heating pad.Pt failed ice.Pt failed Tylenol, Oxycodone.Patient denies fever, fatigue, malaise, rigor, night sweat, unintentional or unaccounted-for weight loss, local erythema, edema, swelling at the site, lateralized or generalized weakness, nuchal rigidity, thunder clap headache, nausea, vomiting, imbalance, vertigo, hearing loss, speech deficit, bowel or bladder changes, saddle area anesthesia. Due to the absence of clinical evidence including h/p and tests to suggest non-benign etiology such as infection (ROS, H/P), malignancy (ROS, H/P), fracture (ROS, H/P), vascular occlusion/claudication (ROS, H/P, normal vascular examination), for the clinical presentation, further investigation is deferred and reserved pending clinical follow-up.Patient is educated about the indication for comprehensive history (including substance abuse and sexual history), examination assisted by physician and nurse practitioner and/or nurse, and medical record and image review. Patient consented to such history/exam/review. Patient denies current drug, tobacco, alcohol abuse. Past narcotic and pain medication, test results, treatment history and record have been reviewed with patient. DEPRESSION This is a follow up visit. The patient presents with anxious/fearful thoughts and depressed mood. Additional information: ADDED JARROD RECENTLY TO THE LEXAPRO. hAS SEEN dR Castillo. cHANGING TO PROZAC. wASNT HAPPY WITH THE LEXAPRO. hyperlipidemia Risk factors inc lude age over 50. The patient is adhering to medication and follow-up for their hyperlipidemia. Positive comorbidity factors include stroke. CVA Type of stroke i s Ischemic Type(s) of deficit: Motor; Sensory. Status of deficit is fixed. The risk factors include age > 50. Additional information: RIGTH HAND IS IMPROVED AND IS FUNCTIONAL RIGTH LEG IS STILL SOMETIMES WEAK. back pain The problem is f luctuating. It occurs persistently. Location of pain is middle back and lower back. Pain is radiated to the left foot and right foot.The patient describes the pain as an ache, numbness and throbbing. Additional information: Completed PT but feels it made pain worse. Fatigue CVA Severity: mild. Type of stroke is Ischemic (undetermined). Type(s) of deficit: Sensory. Status of deficit is fixed. The risk factors include age > 50. Hyperlipidemia (follow up) Risk factors include age over 50. Positive comorbidity factors include stroke. Pertinent negatives include chest pain, claudication, constant hunger, constipation, diaphoresis, diarrhea, dizziness, dysesthesias, dyspnea, excessive thirst, foot ulcer, frequent infections, heartburn, hematuria, hypoglycemic episodes, impotence/erectile dysfunction, increased fatigue, joint pain, myalgia, nausea, nocturia, palpitations, polydipsia, polyuria, rash, slow healing, transient weakness, vision loss,'+ vomiting, weight gain and weight loss. Depression Functional Status Date Functional Assessmen t No Information Instructions Date Instruction Additional Infor sally Dietary management e ducation, guidance, and counseling Related to Body mass index (BMI) 27.0-27.9, adult psa in two weeks aft er prostate exam today Related to Family hx of prostate cancer prostate mildly swol stephon nontender recommend attempts at ejacualtinomild masasage performeddiscussed home treatment will see urology for injection therapy for ED Related to Prostatism Scribed by JANIS Johnson on 04/23/16 at 10:[address] 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 No side effects tothe meds Related to Other depressive episodes Assessments Type Assessment Date No Information Patient Care Teams Name Effective Dates (start - stop) Status Members No Information
[2025-10-30 08:10] VITALS: BP 149/75; PULSE 88; RESP 16; TEMP 36.4; O2SAT 98; BMI 37.7
--- NOTE | 2025-10-30 08:10 | MHC.PC.OV ---
Vital Signs 10/30/25 08:10 Height 5 ft 9.88 in Weight 262 lb BMI 37.7 BP 149/75 H Blood Pressure Location Rt brachial Position Sitting Respiration 16 Pulse 88 Pulse Source Pulse Oximeter Temp 97.6 F Temp Source Temporal Artery Scan Pulse Oximetry (%) 98 Oxygen Delivery Method Room Air Intake Visit Reasons: 3 month follow up - see comments Cabinet Installer Required: No Accompanied by: Self / Same As Patient Allergies clindamycin Allergy (Mild, Verified 11/06/25 20:57) Diarrhea Medication List - Last Reconciled 11/06/25 by Pablo Wooten MD aripiprazole (Abilify) 2.5 mg (1.25 x 2 mg) PO DAILY armodafinil (Nuvigil) 200 mg PO QAM aspirin 81 mg PO DAILY atorvastatin 10 mg PO DAILY cholecalciferol (vitamin D3) 50 mcg PO DAILY escitalopram oxalate (Lexapro) 30 mg PO DAILY lisinopril 20 mg PO DAILY omeprazole 40 mg PO DAILY tadalafil (Cialis) 10 mg PO DAILY PRN triamterene-hydrochlorothiazid 37.5-25 mg 1 tab PO DAILY Tobacco use date assessed: 08/20/25 Dental Screening Dental Screen Date: 08/20/25 HPI HPI Comments History of Present Illness Details History of Present Illness - The patient is a 59-year-old male presenting for follow-up of multiple chronic conditions and worsening knee pain. - Knee Pain: The patient reports his knee pain has worsened since his last visit, describing it less as constant pain and more as significant pain and weakness with strain, such as getting up from a chair, sitting down, or using stairs. - He has fallen twice in his kitchen due to his knee giving out and sometimes requires assistance to stand up due to the pain. - About two months ago, he fell down two steps outside his house, which he believes caused significant injury to his knees, though he had no contusions and was able to get up without assistance at that time. - Sleep Apnea: He has an appointment for a sleep study scheduled in November. - He was previously prescribed Nuvigil 200 mg for daytime sleepiness by his prior doctor in [place] but stopped taking it last year because he could not get it prescribed locally. - Pituitary Insufficiency: He is taking his prescribed medications, including enclomiphene once daily, and has an appointment with his call specialist in late October. - His prescriptions for Abilify and Lexapro were originally started by a psychiatrist. - Leg Edema: He reports persistent, mild edema in his legs that has not changed and does not seem to resolve. - Hypertension: The patient is concerned about his blood pressure, as his systolic reading is consistently around 150 mm Hg both at home and in the office, despite being on lisinopril 10 mg. - Oral Lesion: About a week after his last visit, he bit the side of his tongue and developed two white sores that have not healed. - Past Medical History & Preventative Care: His last colonoscopy was about three years ago in [place], [place], and he was cleared for 10 years. - He has received his flu vaccination. Social History - Functional Status: The patient reports difficulty with mobility, requiring assistance at times to get up from a chair due to knee pain and weakness. - He has experienced two recent falls in his kitchen. Results - Labs: Blood work from August showed no anemia, with normal kidney and liver functions. - Cholesterol was within range. [facility] Medical History Hypopituitarism Obstructive sleep apnea Diabetes mellitus Surgical History History of surgery Family History Father Prostate cancer Alcohol abuse Mother Breast cancer Alcohol abuse Social History Housing: House Alcohol intake: current Alcohol intake frequency: does not drink Patient Tobacco Use Status: Never used Tobacco service: No Current occupational status: unemployed Cognitive needs: No Hearing needs: No Vision needs: Yes (rx glasses) Questionnaire PHQ-9 Over the last 2 weeks, how often have you been bothered by any of the following problems? 1. Little interest or pleasure in doing things: not at all 2. Feeling down, depressed, or hopeless: not at all 3. Trouble falling or staying asleep, or sleeping too much: not at all 4. Feeling tired or having little energy: not at all 5. Poor appetite or overeating: not at all 6. Feeling bad about yourself - or that you are a failure or have let yourself or your family down: not at all 7. Trouble concentrating on things, such as reading the newspaper or watching television: not at all 8. Moving or speaking so slowly that other people could have noticed. Or the opposite - being so fidgety or restless that you have been moving around a lot more than usual: not at all 9. Thoughts that you would be better off or of hurting yourself in some way: not at all Total score: 0 Source: Developed by Drs. Marcus Cotter, Lima Carney, Bry Woods and colleagues, with an educational danny from [employer]. Thrive Questionnaire Date Thrive assessed: 08/20/25 I am a: Patient What is your living situation today?: I have a steady place to live Within the past 12 months, did the food you bought not last and you didn't have the money to get more?: Never true Within the past 12 months, did you worry whether your food would run out before you got money to buy more?: Never true Do you have trouble paying for medicines?: No Do you have trouble getting transportation to medical appointments?: No Do you have trouble paying your heating and electricity bill?: No Do you have trouble taking care of your child, family member or friend?: No Do you have trouble with day-to-day activities such as bathing, preparing meals, shopping, managing finances, etc.?: No Are you currently unemployed and looking for a job?: No Are you interested in more education?: No Please select the resources that you would like help with: None THRIVE Score: 0 AUDIT C Alcohol Use Questionnaire (AUDIT-C) 1. How often do you have a drink containing alcohol?: Never 3. How often do you have six or more drinks on one occasion?: Never Total Score: 0 AICHA-7 AMB Questionnaire AICHA-7 Date AICHA - 7 assessed: 08/20/25 Feeling nervous, anxious, or on edge: 0 = Not at all Not being able to stop or control worryin = Not at all Worrying too much about different things: 0 = Not at all Trouble relaxin = Not at all Being so restless that it is hard to sit still: 0 = Not at all Becoming easily annoyed or irritable: 0 = Not at all Feeling afraid as if something awful might happen: 0 = Not at all Total AICHA-7 score (0-4 normal; 5-9 mild; 10-14 moderate; 15-21 severe): 0 Source: Developed by Drs. Marcus Cotter, Lima Carney, Bry Woods and colleagues, with an educational danny from [employer]. Review of Systems Narrative Review of Systems - Musculoskeletal: Reports worsening knee pain and weakness, particularly with strain like standing, sitting, or using stairs. - Neurological: Reports his knee giving out, leading to two falls. - Constitutional: Reports daytime sleepiness. - Cardiovascular: Reports persistent mild leg edema. - Denies headaches despite elevated blood pressure. - Mouth/Throat: Reports two non-healing white sores on the side of his tongue. Physical exam (Primary Care) Vital Signs: Last Vital Signs Temp 97.6 F 10/30/25 08:10 Pulse 88 10/30/25 08:10 Resp 16 10/30/25 08:10 BP 149/75 H 10/30/25 08:10 Pulse Ox 98 10/30/25 08:10 Oxygen Delivery Method Room Air 10/30/25 08:10 BMI result Body Mass Index 37.7 Tobacco/Smoking Status: Tobacco use Status Tobacco use date assessed 08/20/25 10/30/25 08:16 Patient Tobacco Use Status Never used Tobacco 10/30/25 08:16 PHQ-9: PHQ-9 Score PHQ-9: Total score 0 10/30/25 08:34 Thrive Assessment: Date of Thrive Assessment Date Thrive assessed 08/20/25 10/30/25 08:16 Narrative Physical Exam General: Appearance normal, both eyes and all related structures Nutritional Appearance: Well nourished Orientation/consciousness: Patient oriented x3 Limitations: Difficulty standing up from a seated position and walking due to knee pain and weakness Head: Normal to inspection Neck: Normal visual inspection Chest: Normal palpation of entire chest wall Respiratory: Normal respiratory effort Neurology: Patient oriented x3 Coding Level of Care Code Est Pt Level 4 (78957) Add On Problem Visit Only Diagnoses Pain in both knees M25.561; M25.562 Assessment & Plan Assessment & Plan (1) Pain in both knees: Code(s): M25.561 - Pain in right knee; M25.562 - Pain in left knee Plan Plan - Knee Pain: Will order x-rays of both knees. - Will refer for a six-week course of physical therapy to improve strength in the quadriceps, hamstrings, and knees. - Hypertension: Increase lisinopril to 20 mg daily. - The patient was instructed to take a double dose of his current 10 mg tablets until they are finished, and a new prescription for 20 mg will be provided. - Sleep Apnea/Daytime Sleepiness: Proceed with scheduled sleep study in November. - Will prescribe a 30-day supply of Nuvigil to manage daytime sleepiness. - Will advise the patient to discuss the Nuvigil prescription with the sleep specialist. - Oral Lesion: Recommended that the non-healing sores on the tongue require a biopsy, which is typically arranged by a dentist referring to an oral surgeon. - The patient will contact his regular dentist in [place] to see if he can be seen sooner for a referral or if he should establish care with a local dentist to start the process. - Pituitary Insufficiency: The patient to continue current medications and follow up with his call specialist in October. - Preventative Care: The patient will obtain records from his colonoscopy performed three years ago in [place], [place] by signing a release form. - Follow-up: Patient to return in six months. Discussion Notes I discussed with the patient the plan for his worsening knee pain, which will involve obtaining x-rays and starting a 6-week course of physical therapy to strengthen the surrounding muscles. We will re-evaluate his progress after the therapy. Regarding his hypertension, I explained that since his systolic blood pressure remains elevated around 150 mm Hg despite medication, we will increase his lisinopril dose from 10 mg to 20 mg daily. I provided instructions on how to double his current dose until the new prescription is filled. I advised him that the non-healing white sores on his tongue need further evaluation, likely a biopsy, and explained the referral pathway through a dentist to an oral surgeon. The patient will follow up with his current dentist or establish local care to proceed. I agreed to restart his Nuvigil for daytime sleepiness with a 30-day prescription and advised him to discuss long-term management with the specialist at his upcoming sleep study. I also requested that he obtain the records from his last colonoscopy for our files. We summarized the plan, which includes the knee x-rays, physical therapy, medication changes, dental follow-up for the oral lesion, and a return visit in six months. Patient Instructions - For your knee pain, please go for X-rays of both knees. - You will be referred for physical therapy for 6 weeks to help strengthen your leg muscles. - For your high blood pressure, start taking two of your 10 mg lisinopril tablets once a day. - Once those run out, a new prescription for 20 mg tablets will be ready for you to take once a day. - For the sores on your tongue, contact your dentist in [place] to schedule an urgent appointment for an evaluation and possible referral for a biopsy. - If he cannot see you soon, you will need to find a local dentist to start this process. - Please let our office know how you plan to proceed. - A 30-day prescription for Nuvigil for daytime sleepiness has been sent to your pharmacy. - Please proceed with your scheduled sleep study in November and your endocrinology appointment in October. - Please sign a release form so we can get the results of your last colonoscopy. - Please schedule a follow-up appointment to see me in six months. Orders: Orders XR knee LT 3V 10/30/25 S83.92XA - Sprain of unspecified site of left knee, initial encounter XR knee RT 3V 10/30/25 S83.91XA - Sprain of unspecified site of right knee, initial encounter PT Evaluation and Treatment 10/30/25 M25.561 - Pain in right knee, M25.562 - Pain in left knee Medications: New armodafinil (Nuvigil) 200 mg PO QAM 30 tabs 0RF Changed From lisinopril 10 mg PO DAILY 90 tabs 1RF To lisinopril 20 mg PO DAILY 90 tabs 1RF
== END 2025-10-30 08:38 | disposition home or self-care (01) ==
LOC: HO.HMCSH 08:07
PROVIDERS: PCP Internal Medicine; Visit Provider Internal Medicine
DX: M25.561 Pain in right knee (principal); M25.562 Pain in left knee

== ENCOUNTER 2025-11-06 08:37 | Outpatient (AMB) | payer OTHER, SELFPAY ==
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
[2025-11-06 08:55] VITALS: BP 116/88; PULSE 87; O2SAT 93; BMI 37.0
== END 2025-11-06 09:32 | disposition home or self-care (01) ==
LOC: HO.ENCR 08:37
PROVIDERS: PCP Internal Medicine; Visit Provider Internal Medicine Endocrinology, Diabetes & Metabolism
DX: E23.0 Hypopituitarism (principal)
CPT/HCPCS: 99204

== ENCOUNTER 2025-11-09 08:57 | Outpatient (REF) | payer OTHER, SELFPAY ==
--- NOTE | ~2025-11-09 | XR_ITS ---
EXAMINATION: XR KNEE, RIGHT CLINICAL INFORMATION: S83.91XA - Sprain of unspecified site of right knee, initial encounter COMPARISON: None available. TECHNIQUE: AP oblique and lateral views of the right knee. FINDINGS: Joint space narrowing involving medial compartment. No acute fracture or dislocation. No suprapatellar bursa joint effusion. No lytic or blastic lesions. No soft tissue calcifications. XR/XR knee RT 4V IMPRESSION: Mild medial compartment osteoarthrosis/osteoarthritis. Electronically signed by: Minesh Akbar MD 11/09/2025 09:27 AM [id number]
--- NOTE | ~2025-11-09 | XR_ITS ---
EXAMINATION: XR KNEE, LEFT CLINICAL INFORMATION: S83.92XA - Sprain of unspecified site of left knee, initial encounter COMPARISON: None available. TECHNIQUE: AP, oblique and lateral views of the left knee. FINDINGS: No acute fracture or dislocation. No lytic or blastic lesions. Asymmetric joint space narrowing medial compartment. No suprapatellar bursa joint effusion. XR/XR knee LT 4V IMPRESSION: Mild medial compartment osteoarthrosis/osteoarthritis. Electronically signed by: Minesh Akbar MD 11/09/2025 09:26 AM СЕРГЕЙ BRAY
== END 2025-11-09 08:58 | disposition home or self-care (01) ==
LOC: HO.HMGCX 08:57
PROVIDERS: PCP Internal Medicine; Visit Provider Internal Medicine
DX: S83.91XA Sprain of unspecified site of right knee, initial encounter (principal); S83.92XA Sprain of unspecified site of left knee, initial encounter
CPT/HCPCS: 73564

== ENCOUNTER → 2025-11-09 09:00 | Outpatient (BNV) | payer OTHER, SELFPAY | PROVIDERS: PCP Internal Medicine; Visit Provider Radiology Diagnostic Radiology | DX: S83.92XA Sprain of unspecified site of left knee, initial encounter (principal); S83.91XA Sprain of unspecified site of right knee, initial encounter; M17.0 Bilateral primary osteoarthritis of knee | CPT/HCPCS: 73564 ==